=== PATIENT | female | born 2000 | race Caucasian/White ===

== ENCOUNTER 2020-12-08 01:11 | Emergency (ER) | payer BC, SELFPAY ==
[~2020-12-08] VITALS: Ht 157.5 cm; Wt 56.2 kg
[2020-12-08] MEDS ORDERED: NS 1,000 ML IV ONE (01:35)
[2020-12-08 01:58] LABS: BASO % 0.5 % (0.0-1.0); EOS # 0.2 10^3/uL (0.0-0.5); EOS % 2.6 % (0.0-3.0); HEMATOCRIT 39.3 % (36.0-47.0); HEMOGLOBIN 13.7 g/dl (12.0-15.5); LYMPH # 3.4 10^3/uL (1.5-5.0); LYMPH % 51.9 % (24.0-44.0); MEAN CORPUSCULAR HGB CONC 34.9 g/dl (32.0-36.5); MEAN CORPUSCULAR VOLUME 88.9 fl (80.0-96.0); MONO # 0.6 10^3/uL (0.0-0.8); MONO % 8.7 % (2.0-8.0); NEUTROPHILS # 2.4 10^3/uL (1.5-8.5); NEUTROPHILS % 36.1 % (36.0-66.0); PLATELET COUNT, AUTOMATED 250 10^3/uL (150-450); RED BLOOD COUNT 4.42 10^6/uL (4.00-5.40); WHITE BLOOD COUNT 6.6 10^3/uL (4.0-10.0)
[2020-12-08] MEDS ORDERED: PANTOPRAZOLE 40MG VIAL (C9113 PER 1) IV ONE (02:20)
[2020-12-08 02:25] LABS: AMPHETAMINES LEVEL URINE NEGATIVE (NEGATIVE); BARBITURATES URINE NEGATIVE (NEGATIVE); BENZODIAZEPINES URINE NEGATIVE (NEGATIVE); CANNABINOIDS URINE NEGATIVE (NEGATIVE); COCAINE METABOLITE URINE NEGATIVE (NEGATIVE); METHADONE URINE NEGATIVE (NEGATIVE); OPIATES URINE POSITIVE (NEGATIVE); PHENCYCLIDINE URINE NEGATIVE (NEGATIVE)
[2020-12-08 02:36] LABS: ACETAMINOPHEN LEVEL 39.9 UG/ML (10.0-30.0); ALBUMIN 4.1 GM/DL (3.2-5.2); ALT/SGPT 31 U/L (12-78); BILIRUBIN,DIRECT 0.1 MG/DL (0.0-0.2); BILIRUBIN,TOTAL 0.3 MG/DL (0.2-1.0); BLOOD UREA NITROGEN 16 MG/DL (7-18); CALCIUM LEVEL 8.1 MG/DL (8.5-10.1); CARBON DIOXIDE LEVEL 24 MEQ/L (21-32); CHLORIDE LEVEL 112 MEQ/L (98-107); CPK CREATINE PHOSPHOKINASE 83 U/L (26-192); CREATININE FOR GFR 0.82 MG/DL (0.55-1.30); ETHYL ALCOHOL (ETHANOL) < 0.003 % (0.000-0.010); GLOMERULAR FILTRATION RATE > 60.0 (>60); GLUCOSE, FASTING 110 MG/DL (70-100); POTASSIUM SERUM 3.6 MEQ/L (3.5-5.1); SALICYLATE LEVEL < 1.7 MG/DL (5.0-30.0); SODIUM LEVEL 142 MEQ/L (136-145); TOTAL PROTEIN 7.3 GM/DL (6.4-8.2)
[2020-12-08 03:16] LABS: HCG, SERUM QUALITATIVE NEGATIVE (NEGATIVE)
[2020-12-08 04:15] VITALS: BP 126/56
--- NOTE | 2020-12-08 06:34 | ECGEPIP ---
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
== END 2020-12-08 04:18 | disposition home or self-care (01) ==
LOC: M ED 01:11
DX: R10.9 Unspecified abdominal pain (principal); R11.2 Nausea with vomiting, unspecified; R51.9 Headache, unspecified; T39.311A Poisoning by propionic acid derivatives, accidental (unintentional), initial encounter; Y92.9 Unspecified place or not applicable; Y93.9 Activity, unspecified; R00.0 Tachycardia, unspecified; I44.0 Atrioventricular block, first degree; F17.290 Nicotine dependence, other tobacco product, uncomplicated
CPT/HCPCS: 36415; 80048; 80076; 80143; 80307; 82077; 82550; 84443; 84703; 85025; 93005; 93041; 94760; 96361; 96374; 99285; C9113

== ENCOUNTER 2021-03-27 01:35 | Emergency (ER) | payer BC ==
[~2021-03-27] VITALS: Ht 157.5 cm; Wt 54.3 kg
[2021-03-27 02:32] LABS: BASO % 0.4 % (0.0-1.0); EOS # 0.1 10^3/uL (0.0-0.5); EOS % 1.9 % (0.0-3.0); HEMATOCRIT 40.4 % (36.0-47.0); LYMPH # 2.9 10^3/uL (1.5-5.0); LYMPH % 43.2 % (24.0-44.0); MEAN CORPUSCULAR HEMOGLOBIN 31.1 pg (27.0-33.0); MEAN CORPUSCULAR HGB CONC 34.7 g/dl (32.0-36.5); MEAN CORPUSCULAR VOLUME 89.8 fl (80.0-96.0); MONO # 0.5 10^3/uL (0.0-0.8); MONO % 7.1 % (2.0-8.0); NEUTROPHILS # 3.2 10^3/uL (1.5-8.5); NEUTROPHILS % 47.3 % (36.0-66.0); PLATELET COUNT, AUTOMATED 275 10^3/uL (150-450); WHITE BLOOD COUNT 6.8 10^3/uL (4.0-10.0)
[2021-03-27 03:06] LABS: HCG, SERUM QUALITATIVE NEGATIVE (NEGATIVE)
[2021-03-27 03:16] LABS: BLOOD UREA NITROGEN 15 MG/DL (7-18); CALCIUM LEVEL 8.8 MG/DL (8.5-10.1); CARBON DIOXIDE LEVEL 28 MEQ/L (21-32); CHLORIDE LEVEL 107 MEQ/L (98-107); CK-MB VALUE MASS 1.2 NG/ML (<3.6); CPK CREATINE PHOSPHOKINASE 94 U/L (26-192); CREATININE FOR GFR 0.74 MG/DL (0.55-1.30); GLOMERULAR FILTRATION RATE > 60.0 (>60); GLUCOSE, FASTING 94 MG/DL (70-100); MB/CK RELATIVE INDEX 1.28 (< OR =4); POTASSIUM SERUM 3.5 MEQ/L (3.5-5.1); SODIUM LEVEL 140 MEQ/L (136-145); TROPONIN I < 0.02 NG/ML (< 0.10)
[2021-03-27] MEDS ORDERED: GI COCKTAIL 50ML BTL(HYOSCYAMINE/MAALOX/LIDOCAINE VISCOUS)(1:3:1) PO ONE (04:15)
[2021-03-27] MEDS ORDERED: ISOVUE-370 76% 100ML VIAL As Ordered ONE (04:18)
[2021-03-27 04:38] LABS: ALBUMIN 4.3 GM/DL (3.2-5.2); ALT/SGPT 21 U/L (12-78); BILIRUBIN,DIRECT 0.1 MG/DL (0.0-0.2); BILIRUBIN,TOTAL 0.4 MG/DL (0.2-1.0); LIPASE 126 U/L (73-393); TOTAL PROTEIN 7.8 GM/DL (6.4-8.2)
--- NOTE | 2021-03-27 05:06 | REPVR ---
PROCEDURE INFORMATION: Exam: XR Chest Exam date and time: 03/27/2021 2:39 AM Age: 20 years old Clinical indication: Other: Chest pain; Additional info: Cheat pain TECHNIQUE: Imaging protocol: XR of the chest. Views: 2 views. COMPARISON: No relevant prior studies available. FINDINGS: Lungs: Unremarkable. No consolidation. Pleural spaces: Unremarkable. No pleural effusion. No pneumothorax. Heart/Mediastinum: Unremarkable. No cardiomegaly. Bones/joints: Unremarkable. IMPRESSION: Negative chest. Electronically signed by: Julien Cartwright On 03/27/2021 05:05:37 AM
--- NOTE | 2021-03-27 05:09 | REPVR ---
PROCEDURE INFORMATION: Exam: CTA Chest With Contrast Exam date and time: 03/27/2021 4:13 AM Age: 20 years old Clinical indication: Pain; Other: Chest; Additional info: Pleuritic chest pain TECHNIQUE: Imaging protocol: Computed tomographic angiography of the chest with contrast. 3D rendering (Not supervised by radiologist): MIP and/or 3D reconstructed images were created by the technologist. Radiation optimization: All CT scans at this facility use at least one of these dose optimization techniques: automated exposure control; mA and/or kV adjustment per patient size (includes targeted exams where dose is matched to clinical indication); or iterative reconstruction. Contrast material: ISO; Contrast volume: 100 ml; Contrast route: INTRAVENOUS (IV); COMPARISON: CR Chest, 2 view PA, Lat 03/27/2021 3:03 AM FINDINGS: Pulmonary arteries: The main pulmonary artery measures 22 mm. No pulmonary embolism is identified. Aorta: The ascending thoracic aorta measures 24 mm. Lungs: Minimal right apical fibro-atelectatic change. Pleural spaces: Unremarkable. No pneumothorax. No pleural effusion. Heart: Unremarkable. No cardiomegaly. No pericardial effusion. Lymph nodes: Unremarkable. No enlarged lymph nodes. Bones/joints: Unremarkable. No acute fracture. Soft tissues: Unremarkable. IMPRESSION: Negative CTA chest. No pulmonary embolism is identified. Electronically signed by: Julien Cartwright On 03/27/2021 05:08:44 AM
--- NOTE | 2021-03-27 05:12 | REPVR ---
PROCEDURE INFORMATION: Exam: CT Abdomen And Pelvis With Contrast Exam date and time: 03/27/2021 4:13 AM Age: 20 years old Clinical indication: Abdominal pain; Generalized; Additional info: Luq/epigastric pain TECHNIQUE: Imaging protocol: Computed tomography of the abdomen and pelvis with contrast. Radiation optimization: All CT scans at this facility use at least one of these dose optimization techniques: automated exposure control; mA and/or kV adjustment per patient size (includes targeted exams where dose is matched to clinical indication); or iterative reconstruction. Contrast material: ISO; Contrast volume: 100 ml; Contrast route: INTRAVENOUS (IV); COMPARISON: CR Chest, 2 view PA, Lat 03/27/2021 3:03 AM FINDINGS: Liver: Normal. No mass. Gallbladder and bile ducts: Normal. No calcified stones. No ductal dilation. Pancreas: Normal. No ductal dilation. Spleen: Normal. No splenomegaly. Adrenal glands: Normal. No mass. Kidneys and ureters: Normal. No hydronephrosis. Stomach and bowel: Unremarkable. No obstruction. No mucosal thickening. Appendix: A normal appendix is seen. Intraperitoneal space: Unremarkable. No free air. No significant fluid collection. Vasculature: Unremarkable. No abdominal aortic aneurysm. Lymph nodes: Unremarkable. No enlarged lymph nodes. Urinary bladder: Unremarkable as visualized. Reproductive: The ovaries appear normal and symmetric. Bones/joints: Unremarkable. No acute fracture. Soft tissues: Unremarkable. IMPRESSION: Negative CT abdomen/pelvis. Electronically signed by: Julien Cartwright On 03/27/2021 05:11:51 AM
[2021-03-27] MEDS ORDERED: OMEP40CA4 PO (06:28)
[2021-03-27] MEDS ORDERED: SUCR1TA PO (06:28)
[2021-03-27 06:42] VITALS: BP 99/55
--- NOTE | 2021-03-27 20:45 | ECGEPIP ---
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
== END 2021-03-27 06:45 | disposition home or self-care (01) ==
LOC: M ED 01:35
DX: R07.89 Other chest pain (principal); K21.9 Gastro-esophageal reflux disease without esophagitis; F17.200 Nicotine dependence, unspecified, uncomplicated
CPT/HCPCS: 71046; 71275; 74177; 80048; 80076; 82550; 82553; 83690; 84443; 84484; 84703; 85025; 93005; 99284; Q9967

== ENCOUNTER 2021-05-15 11:15 | Emergency (ER) | payer BC, OTHER ==
[~2021-05-15] VITALS: Ht 157.5 cm; Wt 53.5 kg
[~2021-05-15 11:15] MED LIST: OMEP40CA4 PO; SUCR1TA PO
--- NOTE | 2021-05-15 13:03 | REP ---
INDICATION: fall from 5 ft, 2 months ago, increased pain since. COMPARISON: None. TECHNIQUE: 2 x 2 mm increments using helical technique with sagittal and coronal reconstructions FINDINGS: Vertebral body height and alignment is within normal limits. The facet joints are well aligned bilaterally. The disc spaces are symmetric and well maintained throughout. There is no fracture, dislocation, or subluxation. There is no anterior spinal soft tissue swelling. IMPRESSION: Within normal limits. Since the patient complains of persistent pain since trauma [address] cannot accurately assess for a disc extrusion MRI should be considered at this time. <Electronically signed by Juan Stanley > 05/15/21 1300
--- NOTE | 2021-05-15 13:12 | REPVR ---
PROCEDURE INFORMATION: Exam: CT Thoracic Spine Without Contrast Exam date and time: 05/15/2021 12:37 PM Age: 20 years old Clinical indication: Injury or trauma; Fall; Blunt trauma (contusions or hematomas); Additional info: Fall from 5 ft, 2 months ago, increased pain since TECHNIQUE: Imaging protocol: Computed tomography images of the thoracic spine without contrast. Radiation optimization: All CT scans at this facility use at least one of these dose optimization techniques: automated exposure control; mA and/or kV adjustment per patient size (includes targeted exams where dose is matched to clinical indication); or iterative reconstruction. COMPARISON: CT ABD/PEL W/IV CONTRAST ONLY 03/27/2021 4:21 AM FINDINGS: Vertebrae: There is a minimal scoliosis without evidence of acute or healing fracture. No worrisome malalignment. No high-grade degenerative change. T1-T2: No significant disc protrusion. No severe spinal canal stenosis. No significant neural foraminal narrowing. T2-T3: No significant disc protrusion. No severe spinal canal stenosis. No significant neural foraminal narrowing. T3-T4: No significant disc protrusion. No severe spinal canal stenosis. No significant neural foraminal narrowing. T4-T5: No significant disc protrusion. No severe spinal canal stenosis. No significant neural foraminal narrowing. T5-T6: No significant disc protrusion. No severe spinal canal stenosis. No significant neural foraminal narrowing. T6-T7: No significant disc protrusion. No severe spinal canal stenosis. No significant neural foraminal narrowing. T7-T8: No significant disc protrusion. No severe spinal canal stenosis. No significant neural foraminal narrowing. T8-T9: No significant disc protrusion. No severe spinal canal stenosis. No significant neural foraminal narrowing. T9-T10: No significant disc protrusion. No severe spinal canal stenosis. No significant neural foraminal narrowing. T10-T11: No significant disc protrusion. No severe spinal canal stenosis. No significant neural foraminal narrowing. T11-T12: No significant disc protrusion. No severe spinal canal stenosis. No significant neural foraminal narrowing. T12-L1: No significant disc protrusion. No severe spinal canal stenosis. No significant neural foraminal narrowing. Spinal epidural space: No epidural fluid. Other bones/joints: The visualized ribs are intact. Lungs: The included lungs are grossly clear. Soft tissues: No paraspinal mass or hematoma. Other findings: No visualized disc bulge or herniation. IMPRESSION: No acute bony abnormality and no CT explanation for the patient's pain. Electronically signed by: Geovanny Reich On 05/15/2021 13:11:55 PM
--- NOTE | 2021-05-15 17:59 | REPVR ---
PROCEDURE INFORMATION: Exam: MR Cervical Spine Without Contrast Exam date and time: 05/15/2021 5:20 PM Age: 20 years old Clinical indication: Neck pain; Additional info: Fall, severe neck pain, recomm by radiology TECHNIQUE: Imaging protocol: Multiplanar magnetic resonance images of the cervical spine without contrast. COMPARISON: CT Spine,cervical w/o contrast 05/15/2021 12:41 PM FINDINGS: Vertebrae: Anatomic alignment. No acute fracture seen. Spinal cord: Normal signal. No cord compression. Spinal epidural space: No evidence of epidural hematoma. The intervertebral disc heights are preserved. There is minimal disc desiccation. C2-C3: No significant disc disease. No significant spinal stenosis. C3-C4: 2-3 mm central disc protrusion abuts and slightly indents ventral cord. No evidence of cord myelopathy. Central spinal canal stenosis is mild. The neural foramina are patent. C4-C5: No significant disc disease. No significant spinal stenosis. C5-C6: No significant disc disease. No significant spinal stenosis. C6-C7: Subtle 1-2 mm right paracentral disc protrusion as well as slight ligamentum flavum buckling. The central spinal canal and neural foramina are patent. C7-T1: No significant disc disease. No significant spinal stenosis. Soft tissues: No evidence of ligamentous injury. Vertebral arteries: Expected flow voids in the vertebral arteries. IMPRESSION: A central disc protrusion at C3-C4 causes mild central spinal canal stenosis. Electronically signed by: Katharine Rich On 05/15/2021 17:58:31 PM
[2021-05-15] MEDS ORDERED: OMEP-218 PO (18:07)
[2021-05-15] MEDS ORDERED: NAPR-837 PO (18:07)
[2021-05-15 18:23] VITALS: BP 116/67
== END 2021-05-15 18:34 | disposition home or self-care (01) ==
LOC: M ED 11:15
DX: M50.21 Other cervical disc displacement, high cervical region (principal); M54.2 Cervicalgia; F17.290 Nicotine dependence, other tobacco product, uncomplicated

== ENCOUNTER 2021-10-30 18:53 | Emergency (ER) | payer OTHER ==
[~2021-10-30] VITALS: Ht 157.5 cm; Wt 58.8 kg
[~2021-10-30 18:53] MED LIST changes: +NAPR-837 PO; +OMEP-173 PO
[2021-10-30 18:54] VITALS: BP 135/78
== END 2021-10-30 21:42 | disposition left against medical advice (07) ==
LOC: M ED 18:53
DX: Z53.21 Procedure and treatment not carried out due to patient leaving prior to being seen by health care provider (principal)

== ENCOUNTER 2021-10-31 12:54 | Emergency (ER) | payer OTHER ==
[~2021-10-31] VITALS: Ht 157.5 cm; Wt 52.3 kg
[2021-10-31 13:00] VITALS: BP 120/66
== END 2021-10-31 18:11 | disposition left against medical advice (07) ==
LOC: M ED 12:54
DX: Z53.21 Procedure and treatment not carried out due to patient leaving prior to being seen by health care provider (principal)